=== PATIENT | male | born 2000 | race Two or more races ===

== ENCOUNTER 2024-03-10 13:15 | Inpatient (IN) | payer OTHER ==
[~2024-03-10] VITALS: Ht 165.1 cm; Wt 73.4 kg
[2024-03-10 18:15] VITALS: BP 109/61; PULSE 90; RESP 16; TEMP 98; O2SAT 99
[2024-03-10 20:00] VITALS: O2SAT 99
[2024-03-10 20:10] VITALS: BP 116/66; PULSE 85; RESP 18; TEMP 97.9; O2SAT 99
[2024-03-10] MEDS ORDERED: IBUPROFEN 800 MG TABLET PO PRN (20:15)
[2024-03-10] MEDS ORDERED: ONDANSETRON 4 MG TABLET PO PRN (20:30)
[2024-03-10] MEDS ORDERED: FEXOFENADINE PO PRN (20:30)
[2024-03-10] MEDS ORDERED: OXYBUTYNIN CHLORIDE 5 MG TABLET PO PRN (20:30)
[2024-03-10] MEDS ORDERED: PSEUDOEPHEDRINE PO PRN (20:30)
[2024-03-10] MEDS ORDERED: SODIUM CHLORIDE 0.65% 44 ML NASAL SPRAY NASAL PRN (20:45)
[2024-03-10] MEDS ORDERED: -LIDODERM PATCH NOTE- MISC SCH (21:00)
[2024-03-10] MEDS ORDERED: FEXOFENADINE HCL 60 MG TABLET PO PRN (21:30)
[2024-03-10] MEDS: ENOXAPARIN SODIUM 40 MG/0.4 ML PF SYRINGE SQ SCH (21:49)
[2024-03-10] MEDS: GABAPENTIN 300 MG CAPSULE PO SCH (21:50)
[2024-03-10] MEDS: BACITRACIN 28 GM OINTMENT TP SCH (21:50)
[2024-03-10] MEDS: DOCUSATE SODIUM 100 MG CAPSULE PO SCH (21:50)
[2024-03-10] MEDS: ETHYL ALCOHOL 62% ANTISEPTIC NASAL SANITIZER 0.6 ML AMPUL NASAL SCH (21:50)
[2024-03-10] MEDS: FLUTICASONE PROPIONATE 50 MCG/SPRAY 16 GM NASAL SPRAY NASAL SCH (21:50)
[2024-03-10] MEDS: METHOCARBAMOL 750 MG TABLET PO SCH (21:50)
[2024-03-10 22:02] LABS: APPEARANCE,URINE CLEAR (CLEAR); BILIRUBIN,URINE NEGATIVE (NEGATIVE); COLOR,URINE COLORLESS (YELLOW); GLUCOSE, URINE (UA) NEGATIVE (NEGATIVE); KETONES,URINE NEGATIVE (NEGATIVE); LEUKOCYTE ESTERASE ,URINE NEGATIVE (NEGATIVE); NITRATE,URINE NEGATIVE (NEGATIVE); OCCULT BLOOD,URINE NEGATIVE (NEGATIVE); PH,URINE 6.5 (5.0-8.0); PROTEIN,URINE NEGATIVE (NEGATIVE); SPECIFIC GRAVITIY, URINE 1.006 (1.003-1.030); UROBILINOGEN,URINE <=1.0 mg/dL (<=1.0)
[2024-03-10] MEDS: TRETINOIN 0.1% TP SCH (23:01)
[2024-03-10] MEDS: ACETAMINOPHEN 325 MG TABLET PO SCH (23:02)
[2024-03-10] MEDS: MELATONIN 3 MG TABLET PO PRN (23:59)
[2024-03-11] MEDS: OxyCODONE HCL 5 MG IR TABLET PO PRN (03:08)
[2024-03-11 07:48] LABS: ALANINE AMINOTRANSFERASE 56 U/L (12-78); ALBUMIN 3.3 g/dL (3.4-5.0); ALKALINE PHOSPHATASE 167 U/L (46-116); ANION GAP 9 mmol/L (8-16); ASPARTATE AMINOTRANSFERASE 31 U/L (15-37); BASOPHILS % (AUTO) 1.3 % (0.0-2.0); BILIRUBIN,TOTAL 0.4 mg/dL (0.1-1.0); CALCIUM, TOTAL 8.9 mg/dL (8.8-10.5); CARBON DIOXIDE 27 mmol/L (22-29); CHLORIDE 101 mmol/L (98-107); CREATININE 0.68 mg/dL (0.60-1.30); EOSINOPHILS % (AUTO) 3.1 % (1.0-6.0); GLOMERULAR FILTR. RATE CALC > 60 mL/min (>60); GLUCOSE,RANDOM 102 mg/dL (70-110); HEMATOCRIT 33.4 % (41-53); HEMOGLOBIN 11.3 g/dL (13.5-17.5); LYMPHOCYTES # (AUTO) 1.2 K/uL (1.0-4.8); LYMPHOCYTES % (AUTO) 19.6 % (22.0-44.0); MEAN CORPUSCULAR HEMOGLOBIN 32.1 pg (26.0-34.0); MEAN CORPUSCULAR HGB CONC 33.8 G/dL (31.0-37.0); MEAN CORPUSCULAR VOLUME 95 fL (80-100); MONOCYTES # (AUTO) 0.7 K/uL (0.1-1.0); MONOCYTES % (AUTO) 10.8 % (2.0-9.0); NEUTROPHILS % (AUTO) 65.2 % (40.0-70.0); PLATELET COUNT (AUTO) 516 K/uL (150-450); POTASSIUM 3.9 mmol/L (3.5-5.1); RED BLOOD CELL COUNT(AUTO) 3.51 MIL/uL (4.50-5.90); RED CELL DISTRIBUTION WIDTH 15.2 % (11.5-14.5); SODIUM SERUM 137 mmol/L (136-145); TOTAL PROTEIN, SERUM 6.7 g/dL (6.4-8.2); UREA NITROGEN, BLOOD 14 mg/dL (7-18); WHITE BLOOD COUNT (AUTO) 6.1 K/uL (4.5-11.0)
[2024-03-11 08:00] VITALS: BP 94/60; PULSE 69; RESP 18; TEMP 97.8; O2SAT 97
[2024-03-11] MEDS: POLYETHYLENE GLYCOL 3350 17 GM PACKET PO SCH (08:42)
[2024-03-11] MEDS: OxyCODONE HCL 10 MG IR TABLET PO PRN (08:43)
[2024-03-11] MEDS: TAMSULOSIN HCL 0.4 MG CAPSULE PO SCH (08:44)
[2024-03-11] MEDS: PETROLATUM,WHITE 28 GM JELLY TP SCH (08:45)
[2024-03-11] MEDS: LIDOCAINE 5% TRANSDERMAL PATCH TD SCH (08:45)
[2024-03-11 19:51] VITALS: BP 103/56; PULSE 101; RESP 18; TEMP 97.6; O2SAT 97
[2024-03-11] MEDS: -LIDODERM PATCH NOTE- MISC SCH (20:04)
[2024-03-12 00:56] VITALS: O2SAT 97
[2024-03-12 08:00] VITALS: BP 107/60; PULSE 81; RESP 18; TEMP 98.1; O2SAT 97
[2024-03-12 20:00] VITALS: BP 119/67; PULSE 82; RESP 18; TEMP 98.5; O2SAT 96
[2024-03-12 22:28] VITALS: O2SAT 96
[2024-03-13 08:10] VITALS: BP 107/64; PULSE 78; RESP 20; TEMP 99; O2SAT 96
[2024-03-13 09:12] VITALS: O2SAT 96
[2024-03-13 20:00] VITALS: BP 94/57; PULSE 69; RESP 18; TEMP 98.6; O2SAT 98
[2024-03-13 20:20] VITALS: BP 101/58; PULSE 97; RESP 18; TEMP 98; O2SAT 96
[2024-03-13 22:49] VITALS: O2SAT 96
[2024-03-14 08:00] VITALS: BP 94/57; PULSE 69; RESP 18; TEMP 98; O2SAT 98
[2024-03-14 20:15] VITALS: BP_SYST 103; BP_SYST 133; BP_DIAS 55; BP_DIAS 57; PULSE 63; PULSE 90; RESP 18; TEMP 98.9; O2SAT 96; O2SAT 98
[2024-03-14 21:17] VITALS: O2SAT 98
[2024-03-15 08:00] VITALS: BP 103/65; PULSE 77; RESP 18; TEMP 98.4; O2SAT 98
[2024-03-15 20:05] VITALS: BP_SYST 105; BP_SYST 5; BP_DIAS 67; PULSE 80; RESP 18; TEMP 98.4; O2SAT 98
[2024-03-15 23:44] VITALS: BP 105/67; PULSE 80; RESP 18; TEMP 98.4; O2SAT 98
[2024-03-15 23:46] VITALS: O2SAT 98
[2024-03-16 08:35] VITALS: BP 102/63; PULSE 71; RESP 18; TEMP 97.8; O2SAT 99
[2024-03-16 08:58] VITALS: O2SAT 99
[2024-03-16 11:30] VITALS: BP 116/64; PULSE 83; RESP 19; TEMP 98.4; O2SAT 98
[2024-03-16 19:30] VITALS: BP 114/66; PULSE 83; RESP 18; TEMP 98.4; O2SAT 97
[2024-03-16 21:31] VITALS: O2SAT 97
[2024-03-17 08:00] VITALS: BP 117/47; PULSE 64; RESP 18; TEMP 98.1; O2SAT 100
[2024-03-17 08:55] VITALS: O2SAT 100
[2024-03-17 20:00] VITALS: BP 109/71; PULSE 64; RESP 18; TEMP 97.7; O2SAT 99
[2024-03-18] MEDS ORDERED: METH-659 PO (02:24)
[2024-03-18] MEDS ORDERED: TAMS0.4C94 PO (02:24)
[2024-03-18] MEDS ORDERED: ACET-2247 PO (02:24)
[2024-03-18] MEDS ORDERED: DOCU-385 PO (02:24)
[2024-03-18] MEDS ORDERED: LIDO700A15 TP (02:24)
[2024-03-18] MEDS ORDERED: GABA-1181 PO (02:24)
[2024-03-18] MEDS ORDERED: FLUT16SP NASAL (02:24)
[2024-03-18] MEDS ORDERED: BACI28.410 TP (02:28)
[2024-03-18] MEDS ORDERED: MELA3TAB89 PO (02:28)
[2024-03-18 08:05] VITALS: BP 114/64; PULSE 65; RESP 18; TEMP 98; O2SAT 98
[2024-03-18 10:29] VITALS: O2SAT 98
[2024-03-18 13:30] VITALS: BP 120/65; PULSE 75; RESP 18; TEMP 98.3; O2SAT 98
[2024-03-18 21:06] VITALS: BP 113/68; PULSE 83; RESP 18; TEMP 98.5; O2SAT 98
[2024-03-18 21:54] VITALS: O2SAT 98
[2024-03-19 08:00] VITALS: BP 105/64; PULSE 63; RESP 18; TEMP 97.8; O2SAT 98
[2024-03-19 20:54] VITALS: BP 106/61; PULSE 74; RESP 18; TEMP 98.1; O2SAT 99
[2024-03-19 22:55] VITALS: O2SAT 99
[2024-03-20 08:10] VITALS: BP 116/60; PULSE 69; RESP 18; TEMP 97.4; O2SAT 99
[2024-03-20 09:18] VITALS: O2SAT 99
[2024-03-20] MEDS ORDERED: METH-812 PO (11:59)
[2024-03-20] MEDS ORDERED: LIDOCAINE 5% TRANSDERMAL PATCH TD SCH (12:00)
[2024-03-20 20:08] VITALS: BP 106/73; PULSE 84; RESP 18; TEMP 98.5; O2SAT 99
[2024-03-20] MEDS ORDERED: -LIDODERM PATCH NOTE- MISC SCH (21:00)
[2024-03-21 00:19] VITALS: O2SAT 99
[2024-03-21 08:02] VITALS: BP 113/67; PULSE 71; RESP 18; TEMP 98.7; O2SAT 98
[2024-03-21 20:05] VITALS: BP 113/58; PULSE 74; RESP 18; TEMP 98.5; O2SAT 98
[2024-03-21 21:24] VITALS: O2SAT 98
[2024-03-22 08:00] VITALS: BP 101/64; PULSE 53; RESP 18; TEMP 98.3; O2SAT 100
[2024-03-22 08:02] VITALS: PULSE 60
[2024-03-22] MEDS ORDERED: METHOCARBAMOL 500 MG TABLET PO PRN (11:00)
[2024-03-22 20:00] VITALS: BP 116/61; PULSE 75; RESP 20; TEMP 98; O2SAT 96
[2024-03-23 08:00] VITALS: BP 118/67; PULSE 72; RESP 19; TEMP 97.8; O2SAT 99
[2024-03-23] MEDS: ACETAMINOPHEN 325 MG TABLET PO SCH (12:46)
[2024-03-23 20:02] VITALS: BP 110/59; PULSE 83; RESP 18; TEMP 98.3; O2SAT 97
[2024-03-23 22:34] VITALS: O2SAT 97
[2024-03-24 08:00] VITALS: BP 105/65; PULSE 51; RESP 19; TEMP 97.8; O2SAT 98
[2024-03-24 08:05] VITALS: PULSE 60
[2024-03-24] MEDS: ASPIRIN 325 MG TABLET PO SCH (14:20)
[2024-03-24] MEDS: ACETAMINOPHEN 325 MG TABLET PO PRN (17:02)
[2024-03-24 19:36] VITALS: BP 106/67; PULSE 67; RESP 18; TEMP 98.1; O2SAT 97
[2024-03-24 23:46] VITALS: O2SAT 97
[2024-03-25] MEDS: ACETAMINOPHEN 325 MG TABLET PO PRN (00:13)
[2024-03-25 08:05] VITALS: BP 101/68; PULSE 88; RESP 18; TEMP 98.1; O2SAT 98
[2024-03-25 10:17] VITALS: O2SAT 98
[2024-03-25 20:02] VITALS: BP 106/62; PULSE 72; RESP 19; TEMP 98.2; O2SAT 72
[2024-03-26 01:12] VITALS: O2SAT 98
[2024-03-26 08:00] VITALS: BP 104/59; PULSE 54; RESP 19; TEMP 97.7; O2SAT 100
[2024-03-26 14:51] VITALS: BP 102/63; PULSE 82; RESP 18; TEMP 97.7; O2SAT 100
== END 2024-03-26 15:32 | DRG 964 ==
LOC: 2WR 18:22
PROVIDERS: ADMIT Physical Medicine & Rehabilitation; ATTEND Physical Medicine & Rehabilitation
DX: S06.899A Other specified intracranial injury with loss of consciousness of unspecified duration, initial encounter (principal); E46 Unspecified protein-calorie malnutrition; S82.202B Unspecified fracture of shaft of left tibia, initial encounter for open fracture type I or II; S32.048A Other fracture of fourth lumbar vertebra, initial encounter for closed fracture; S32.058A Other fracture of fifth lumbar vertebra, initial encounter for closed fracture; S22.20XA Unspecified fracture of sternum, initial encounter for closed fracture; S82.402B Unspecified fracture of shaft of left fibula, initial encounter for open fracture type I or II; S32.19XA Other fracture of sacrum, initial encounter for closed fracture; S06.5X9A Traumatic subdural hemorrhage with loss of consciousness of unspecified duration, initial encounter; Z74.09 Other reduced mobility; R26.9 Unspecified abnormalities of gait and mobility; M54.9 Dorsalgia, unspecified; R41.89 Other symptoms and signs involving cognitive functions and awareness; R53.81 Other malaise; D64.9 Anemia, unspecified; D75.839 Thrombocytosis, unspecified; S37.052A Moderate laceration of left kidney, initial encounter; S37.812A Contusion of adrenal gland, initial encounter; Z74.1 Need for assistance with personal care; Z68.26 Body mass index [BMI] 26.0-26.9, adult; V89.2XXA Person injured in unspecified motor-vehicle accident, traffic, initial encounter; Y93.89 Activity, other specified; Y92.89 Other specified places as the place of occurrence of the external cause; Y99.8 Other external cause status
CPT/HCPCS: 80053; 81003; 85025; 87081; 92507; 92508; 92523; 92526; 97110; 97112; 97116; 97150; 97162; 97163; 97167; 97530; 97535; 99366; G0238; J1650